=== PATIENT | female | born 1985 | race Caucasian/White ===

== ENCOUNTER 2018-09-04 12:14 | Inpatient (IN) ==
[2018-09-04] MEDS ORDERED: ZOFRAN ODT ONE (12:49)
--- NOTE | 2018-09-04 13:05 | PROVIDER DOCUMENTATION ---
This chart was entered by Ann Randolph Scribe, acting as scribe for Bernarda Martin CRNP. HPI-Female /OB/Breast - General Chief Complaint: OB-Active Labor Stated Complaint: POSSIBLE MISCARRAGE Time Seen by Provider: 09/04/18 12:18 Source: reports: patient - History of Present Illness-Female /OB Nature of Presenting Problem: 33 yof presents to the ed with c/o abdominal cramping and possible labor. pt is and on exam has non ruptured sac protruding from vagina. pt is 22 week Does patient report she is ?: Yes (22 weeks) Location of complaint: reports: periumbilical Quality of Pain: reports: cramping Severity in ED: reports: moderate Onset/Duration: reports: this morning Timing: reports: still present, getting worse Context/Activities at Onset: reports: light activity Vaginal Bleeding Amount: None Related Symptoms: reports: pelvic pain, abdominal pain Leakage of Fluid: uncertain Sexual intercourse history: reports: Less Than 2 Months Ago Contraception: reports: none Modifying Factors: improves with: nothing Similar Symptoms Previously?: Yes Recently seen or treated by another doctor?: No - LMP/ History Menstrual Status: irregular : 4 Para: 3 Prior Delivery: vaginal HCG confirmation: clinic - blood Care: OB doctor PREVIOUS Problems: reports: none Contractions/Pelvic Pain: reports: moderate Review of Systems - Adult - REVIEW OF SYSTEMS - ADULT Constitutional: reports: no symptoms reported Eyes: reports: no symptoms reported Ears, Nose, Mouth & Throat: reports: no symptoms reported Cardiovascular: denies: chest pain, orthopnea, palpitations Respiratory: reports: no symptoms reported Gastrointestinal: reports: see HPI, abdominal pain. denies: diarrhea, nausea, vomiting Genitourinary: reports: see HPI, other (labor active) Musculoskeletal: denies: back pain Integumentary: reports: no symptoms reported Neurological: denies: dizziness/vertigo, headache/migraines Psychiatric: reports: no symptoms reported Endocrine: reports: no symptoms reported Hematologic/Lymphatic: reports: no symptoms reported Allergic/Immunologic: reports: no symptoms reported All Other Systems: Reviewed and Negative Past History - Adult - PAST MEDICAL HISTORY-ADULT Review of Records: reports: Old Records Reviewed, Nursing Assessment Review, Medications Reviewed, Social history reviewed & non-contributory. Major Childhood Illnesses: reports: denies history Cardiovascular: reports: denies history Respiratory: reports: denies history Gastrointestinal: reports: denies history Obstetrical/Gynecological: reports: denies history Genitourinary: reports: denies history Musculoskeletal: reports: denies history Neurological: reports: denies history Endocrine/Immune: reports: denies history Other Conditions: reports: denies history - PRIOR SURGERIES/PROCEDURES Surgical/Procedure History: reports: none - IMMUNIZATION STATUS Childhood Immunizations: See Nurse Assessment Flu Vaccine: See Nurse Assessment - FAMILY HISTORY Family History: reviewed, not pertinent - SOCIAL HISTORY Smoking: denies Substance Use: denies Living Situation: family Physical Exam-General - PHYSICAL EXAM-ADULT Initial Vital Signs Reviewed: Yes - CONSTITUTIONAL General Appearance: alert, mild distress, anxious - EYES Eyes: PERRL/EOMI, pink conjunctivae - HEAD, EARS, NOSE, MOUTH & THROAT HENMT: normocephalic/atraumatic, moist mucous membranes, normal ENT inspection - NECK Neck: non-tender, full range of motion, supple - RESPIRATORY Respiratory: chest non-tender, lungs clear, normal breath sounds - CARDIOVASCULAR Cardiovascular: normal peripheral pulses, tachycardia (105) - GASTROINTESTINAL (ABDOMEN) Abdominal Exam: normal bowel sounds, soft, other (cramping) - GENITOURINARY Female Genitalia/Pelvic Exam: blood, other (pt has partial embrionic sack protruding from vagina with no rupture at this time with 22 week fetus inside) Rectal Exam: deferred Hemoccult Exam: deferred - LYMPHATIC Lymphatic: no adenopathy - MUSCULOSKELETAL Back Exam: normal inspection Extremity: normal range of motion, normal inspection, no pedal edema, no calf tenderness, normal capillary refill - SKIN Integumentary: normal color, normal turgor, warm/dry - NEUROLOGIC Neurologic: grossly normal, no motor/sensory deficits - PSYCHIATRIC Psych/Mental Status: oriented x 3, anxious Progress - PLAN OF CARE/RESULTS Progress/Plan/Lab Results: Orders Category Date Time Status Saline Loc NOW Care 09/04/18 12:25 Active CBC WITH ELECTRONIC DIFF [HEME] Stat Lab 09/04/18 12:18 Uncollected QUANT TEST Stat Lab 09/04/18 12:18 Uncollected RHOGAM WORKUP [BBK] Stat Lab 09/04/18 12:18 Uncollected URINALYSIS W/POSS RFLX CULT [URINALYSIS] Stat Lab 09/04/18 12:18 Uncollected Ondansetron Odt [Zofran Odt] Med 09/04/18 12:49 Discontinued 4 mg .ROUTE .STK-MED ONE Discussed plan of care with patient and family. Both agree with plan and verbalizes understanding. - REASSESSMENT Reassessment #1 Time Reassessed: 12:51 Status: worsening Reassessment Comment: cramping - CONSULTS/PCP/HOSPITALIST Notification #1 *Consult/PCP/Hospitalist*: dr hidalgo Time Discussed: 12:51 Reason/Comments: at [facility] Consult Disposition: Admit (Send to [facility]) Departure - Departure Date of Disposition Decision: 09/04/18 Time of Disposition Decision: 12:49 DIAGNOSIS: Active labor Qualifiers: Fetus number: single or unspecified fetus Qualified Code(s): O60.10X0 - labor with delivery, unspecified trimester, not applicable or unspecified Disposition: [facility] Certified Medical Emergency: Emergent Condition: Serious Referrals and Follow-Ups: None,PCP [Primary Care Provider] - - Critical Care Note This patient required my direct & personal management of CC.: Yes Total Time (mins): 34 Critical Care Statement: This patient required my direct personal management to treat or rule out processes, the absence of which, could potentiallly result in sudden, clinically significant life or limb threatening deterioration. Attestation - Physician/ KADIE Attestation Patient care was provided by Advanced Practice Provider:: Yes Advanced Practice Provider:: Bernarda Martin Advanced Practice Provider documentation review:: The Mid-level provider documentation, treatment plan and medical decision making was reviewed by the physician who agrees with all treatment and medical decision making by the MLP. The physician spent face to face time with patient:: No Advanced Practice Provider documentation review:: Supervising physician onsite and consulted in the evaluation and care of this patient. The physician did not have a face to face encounter with the patient. This chart was documented by the indicated scribe, (Ann Randolph Scribe) and accurately reflects the services I performed and decisions made by me, Bernarda Martin CRNP, as attested by the provider's signature.
[2018-09-04] MEDS ORDERED: PITOCIN ONE ×2 (13:13)
[2018-09-04 13:14] LABS: BASO# 0.01 X1000 (0.0-0.2); BASO% 0.1 % (0.0-0.8); EOS# 0.11 X1000 (0.0-0.7); EOS% 1.6 % (0.0-10.0); HEMATOCRIT 41.6 % (37.0-47.0); HEMOGLOBIN 13.4 g/dL (12.0-16.0); LYMPH# 1.72 X1000 (1.2-3.4); LYMPH% 24.6 % (20.5-51.1); MCH 25.1 PG (27-31); MCHC 32.2 g/dL (33-37); MONO# 0.51 X1000 (0.11-0.59); MONO% 7.3 % (1.7-9.3); MPV 10.7 FL (7.4-10.4); NEUT# 4.64 X1000 (1.4-6.5); NEUT% 66.4 % (42.2-75.2); PLT 264 X1000 (130-400); RBC 5.33 XMIL (4.2-5.4); RDW 15.4 % (11.5-14.5); WBC 6.99 X1000 (4.8-10.8)
[2018-09-04] MEDS ORDERED: ZOFRAN ODT PO ONE (13:45)
[2018-09-04] MEDS ORDERED: MINERAL OIL PO PRN (14:06)
[2018-09-04] MEDS ORDERED: XYLOCAINE-MPF 1% INJ PRN (14:06)
[2018-09-04] MEDS ORDERED: M-M-R II VACCINE SUBQ ONE (14:06)
[2018-09-04] MEDS ORDERED: BOOSTRIX VACCINE IM ONE (14:06)
[2018-09-04] MEDS ORDERED: CYTOTEC PO PRN (14:06)
[2018-09-04] MEDS ORDERED: BENADRYL PO PRN (14:06)
[2018-09-04] MEDS ORDERED: BENADRYL IV PRN (14:06)
[2018-09-04] MEDS ORDERED: ATARAX PO PRN (14:06)
[2018-09-04] MEDS ORDERED: HYDROXYZINE IM PRN (14:06)
[2018-09-04] MEDS ORDERED: PITOCIN IM PRN (14:06)
[2018-09-04] MEDS ORDERED: PERI MEDS (DERMOPLAST/NUPERCAINAL/TUCKS) MISC PRN (14:06)
[2018-09-04] MEDS ORDERED: PITOCIN 30 UNITS/NS 30 UNIT/500 ML IV.SOLN IV SCH (14:15)
[2018-09-04] MEDS: MOTRIN PO PRN ×2 (14:32→23:36)
--- NOTE | 2018-09-04 16:28 | HISTORY AND PHYSICAL ---
CHIEF COMPLAINT: labor. HISTORY OF PRESENT ILLNESS: Ms. York is a 33-year-old, 4, para 3, female at 22 weeks by stated EDC with care x1 visit, complicated by history of opiate abuse, currently on Suboxone, who presented to the [facility] with complaint of abdominal pain. On examination she was noted to have a bulging bag. She was transferred via ambulance to the [facility] where upon arrival she had a spontaneous vaginal delivery of what appeared to be a stillborn of an 18-19 week male fetus. She had complete passage and delivery of placenta spontaneously as well without trauma. The patient denies any complications during this . PAST MEDICAL HISTORY: Positive for history of opiate abuse. PAST SURGICAL HISTORY: Denies. SOCIAL HISTORY: Denies tobacco or alcohol use. History of opiate abuse on Suboxone. FAMILY HISTORY: Noncontributory. PHYSICAL EXAMINATION: GENERAL: Alert and oriented, in no acute distress. PULMONARY: Clear to auscultation bilaterally. CV: Regular rate and rhythm. ABDOMEN: Soft, nondistended, nontender, normoactive bowel sounds. PELVIC: Patient arrived with bulging membranes. EXTREMITIES: No clubbing, cyanosis, or edema. LABORATORY STUDIES: Still pending at the time of dictation. ASSESSMENT: Ms. York is a 33-year-old, 4, para 3, who presented with labor and had delivery of a stillborn infant, male. There was noted to be tight twisting of the cord throughout the entire length. The patient has no vaginal trauma. Vital signs are stable. PLAN: 1. Normal care. 2. Continue Suboxone 8 mg b.i.d. and Zoloft 25 mg q. day. 3. Request record from in [place]. cc: Christos Gallagher MD
[2018-09-04 19:31] LABS: URINE SOURCE CLEAN CATCH
[2018-09-04 19:41] LABS: UR AMPHETAMINES QUAL NONE DETECTED (NONE DETECT); UR BARBITUATES QUAL NONE DETECTED (NONE DETECT); UR BENZODIAZEPIN QUAL NONE DETECTED (NONE DETECT); UR CANNABINOIDS QUAL NONE DETECTED (NONE DETECT); UR COCAINE QUAL NONE DETECTED (NONE DETECT); UR METHADONE QUAL NONE DETECTED (NONE DETECT); UR METHAMPHETAMINE QUAL NONE DETECTED (NONE DETECT); UR OPIATES QUAL NONE DETECTED (NONE DETECT); UR OXYCODONE QUAL NONE DETECTED (NONE DETECT); UR PCP QUAL NONE DETECTED (NONE DETECT); UR PROPOXYPHENE QUAL NONE DETECTED (NONE DETECT); UR TCA QUAL NONE DETECTED (NONE DETECT)
[2018-09-04 19:59] LABS: BILIRUBIN URINE NEGATIVE (NEGATIVE); BLOOD URINE 4+ (NEGATIVE); CLARITY SL. CLOUDY (CLEAR); COLOR YELLOW; GLUCOSE URINE NEGATIVE (NEGATIVE); KETONE URINE NEGATIVE (NEGATIVE); LEUKOCYTES URINE TRACE (NEGATIVE); NITRITE URINE NEGATIVE (NEGATIVE); PH URINE 6.5; PROTEIN URINE NEGATIVE (NEGATIVE); UROBILINOGEN URINE NORMAL
[2018-09-04 20:03] LABS: URINE BACTERIA 1+ /HFP; URINE CAST NONE SEEN /LPF; URINE CRYSTAL NONE SEEN /HPF; URINE EPITHELIAL CELLS >10 /HPF (<10); URINE RBC TNTC /HPF (<10); URINE WBC <10 /HPF (<10); URINE YEAST NONE SEEN /HPF
--- NOTE | 2018-09-04 20:09 | OPERATIVE NOTE ---
PROCEDURE DATE : 09/04/2018 DELIVERY NOTE Mrs. York is a 33-year-old 4, para 3, at 22 weeks by stated EDC, who presented to [facility] by ambulance from [facility] with labor and bulging membranes. The patient had spontaneous vaginal delivery of a stillborn, what appears to be infant male at approximately 18 weeks gestation over an intact perineum. Placenta was delivered spontaneously with trailing membranes. ESTIMATED BLOOD LOSS: 100 mL. COMPLICATIONS: None. Correct sponge, needle, and instrument counts x3. survey revealed what appeared to be an 18 to 19 week male fetus that had passed some time ago, consistent with her 22-week stated EDC. There were no complications in the delivery. cc: Christos Gallagher MD
[2018-09-04] MEDS ORDERED: ZOLOFT PO SCH (21:00)
[2018-09-04] MEDS ORDERED: PERICOLACE PO SCH (21:00)
[2018-09-04] MEDS: SUBOXONE 8 MG/2 MG FILM SL SCH (21:51)
[2018-09-05 08:50] VITALS: BP 118/73
[2018-09-05] MEDS ORDERED: ZOLOFT PO SCH (09:00)
--- NOTE | 2018-09-05 09:18 | DISCHARGE SUMMARY ---
ADMISSION DATE: 09/04/2018 DISCHARGE DATE: 09/05/2018 DISCHARGE DIAGNOSIS: 18 to 19 weeks gestation with demise. PROCEDURE PERFORMED: Vaginal delivery. SUMMARY: 33-year-old 4, para 3, presented to the emergency room complaining of abdominal pain. On physical exam, she was noted to have a bulging bag of water. She was transferred via ambulance to [facility], whereupon arrival, she had a spontaneous vaginal delivery of a nonviable fetus that appeared to be 18 to 19 weeks gestation. She had spontaneous delivery of the placenta without difficulty. Her was complicated by history of opioid abuse with Subutex maintenance. At delivery, there was noted to be a tight twisting of the umbilical cord throughout the entire length. Otherwise, no obvious defects. Her course was uneventful. Her vital signs remained stable and she was afebrile. Her hemoglobin was 13.4. Antepartum. Her drug screen was negative. On the day of discharge physical exam revealed a flat soft nontender abdomen with normal bleeding. She is discharged home in good condition on the morning of day #1. Diet regular. Activity pelvic rest. Medications she will continue her Suboxone as written and followup will be with her russian language professor in [place], Dr. Cleveland. cc: MD Christos Dallas MD Auldsnald, DO Dr. Witt MTDD
[2018-09-05] MEDS: SUBOXONE 8 MG/2 MG FILM SL SCH (09:38)
== END 2018-09-05 09:40 | disposition home or self-care (01) | DRG 805 ==
LOC: ED 12:14 → P.LD 13:12
PROVIDERS: ADMIT Obstetrics & Gynecology; ATTEND Obstetrics & Gynecology
CPT/HCPCS: 80104; 80301; 80305; 81001; 84702; 85025; 86900; 86901; 87088; 99284; A9270; G0431; G0434; G0477; J2590